=== PATIENT | female | born 2000 | race Two or more races ===

== ENCOUNTER 2025-03-19 16:06 | Emergency (ER) | payer BC ==
[2025-03-19 16:15] VITALS: RESP 16; TEMP 98
--- NOTE | 2025-03-19 16:43 | ED ---
General Adult HPI - General Chief complaint: Recheck/Abnormal Lab/Rx Stated complaint: Abn labs Time Seen by Provider: 03/19/25 16:16 Source: patient, RN notes reviewed Mode of arrival: ambulatory - History of Present Illness Initial comments: 24-year-old female presents to the emergency department for positive syphilis test. The patient had routine laboratory testing and STD testing performed by her primary care provider. She was called by her primary care provider and instructed to come to the emergency department for positive syphilis test. She does not have any symptoms currently. She denies any rashes or ulceration. Denies any vaginal discharge. Denies any fever, chills. Denies headache, confusion, rash. - Related Data Allergies Allergy/AdvReac Type Severity Reaction Status Date / Time No Known Allergies Allergy Verified 03/19/25 16:15 Review of Systems ROS Statement: Those systems with pertinent positive or pertinent negative responses have been documented in the HPI. ROS Other: All systems not noted in ROS Statement are negative. Past Medical History Past Medical History: No Reported History History of Any Multi-Drug Resistant Organisms: None Reported Past Surgical History: No Surgical Hx Reported Smoking Status: Never smoker Past Alcohol Use History: Occasional Past Drug Use History: None Reported General Exam Limitations: no limitations General appearance: alert, in no apparent distress Head exam: Present: atraumatic, normocephalic, normal inspection Eye exam: Present: normal appearance, PERRL, EOMI. Absent: scleral icterus, conjunctival injection, periorbital swelling ENT exam: Present: normal exam, mucous membranes moist Respiratory exam: Present: normal lung sounds bilaterally. Absent: respiratory distress, wheezes, rales, rhonchi, stridor Cardiovascular Exam: Present: regular rate, normal rhythm, normal heart sounds. Absent: systolic murmur, diastolic murmur, rubs, gallop, clicks GI/Abdominal exam: Present: soft. Absent: distended, tenderness, guarding, rebound, rigid Extremities exam: Present: normal inspection, full ROM, normal capillary refill. Absent: tenderness, pedal edema, joint swelling, calf tenderness Neurological exam: Present: alert, oriented X3 Psychiatric exam: Present: normal affect, normal mood Skin exam: Present: warm, dry, intact, normal color. Absent: rash Course Vital Signs 03/19/25 03/19/25 16:10 17:14 Temperature 98.0 F Pulse Rate 77 80 Respiratory 16 16 Rate Blood Pressure 134/85 143/85 O2 Sat by Pulse 98 99 Oximetry Medical Decision Making - Medical Decision Making Was pt. sent in by a medical professional or institution (SUSAN Brown, [employer], urgent care, hospital, or [facility]...) When possible be specific @ -PCP Did you speak to anyone other than the patient for history (EMS, parent, family, police, friend...)? What history was obtained from this source @ -No Did you review nursing and triage notes (agree or disagree)? Why? @ -I reviewed and agree with nursing and triage notes Were old charts reviewed (outside hosp., previous admission, EMS record, old EKG, old radiological studies, urgent care reports/EKG's, [facility] records)? Report findings @ -I reviewed testing from patient's primary care provider which revealed a reactive RPR and treponema Differential Diagnosis (chest pain, altered mental status, abdominal pain women, abdominal pain men, vaginal bleeding, weakness, fever, dyspnea, syncope, headache, dizziness, GI bleed, back pain, seizure, CVA, palpatations, mental health, musculoskeletal)? @ -Primary syphilis, latent syphilis, neurosyphilis, this list is not all inclusive EKG interpreted by me (3pts min.). @ -None X-rays interpreted by me (1pt min.). @ -None done CT interpreted by me (1pt min.). @ -None done U/S interpreted by me (1pt. min.). @ -None done What testing was considered but not performed or refused? (CT, X-rays, U/S, labs)? Why? @ -None What meds were considered but not given or refused? Why? @ -None Did you discuss the management of the patient with other professionals (professionals i.e. SUSAN Brown, [employer]ING [employer], lab, RT, psych nurse, social media project manager, sheet rock taper helper, teacher, electronic warfare officer, case preparer and liner)? Give summary @ -No Was smoking cessation discussed for >3mins.? @ -No Was critical care preformed (if so, how long)? @ -No Were there social determinants of health that impacted care today? How? (Homelessness, low income, unemployed, alcoholism, drug addiction, transportation, low edu. Level, literacy, decrease access to med. care, correction, rehab)? @ -No Was there de-escalation of care discussed even if they declined (Discuss DNR or withdrawal of care, Hospice)? DNR status @ -No What co-morbidities impacted this encounter? (DM, HTN, Smoking, COPD, CAD, Cancer, CVA, ARF, Chemo, Hep., AIDS, mental health diagnosis, sleep apnea, morbid obesity)? @ -None Was patient admitted / discharged? Hospital course, mention meds given and route, prescriptions, significant lab abnormalities, going to OR and other pertinent info. @ -Discharge. Patient sent by primary care provider for antibiotic shot for positive syphilis test. I reviewed the patient's outpatient laboratory test revealing reactive RPR. Patient is currently asymptomatic. She will be provided a shot of IM penicillin 2,400,000 units. Patient will be discharged home. Vies follow-up with her PCP. She is understanding agreeable with plan. Patient stable at time of discharge. Case discussed with Dr. Graham. Undiagnosed new problem with uncertain prognosis? @ -No Drug Therapy requiring intensive monitoring for toxicity (Heparin, Nitro, Insulin, Cardizem)? @ -No Were any procedures done? @ -No Diagnosis/symptom? @ -Syphilis Acute, or Chronic, or Acute on Chronic? @ -Acute Uncomplicated (without systemic symptoms) or Complicated (systemic symptoms)? @ -Uncomplicated Side effects of treatment? @ -No Exacerbation, Progression, or Severe Exacerbation? @ -No Poses a threat to life or bodily function? How? (Chest pain, [place], [place], pneumonia, PE, COPD, DKA, ARF, appy, cholecystitis, CVA, Diverticulitis, Homicidal, Suicidal, threat to staff... and all critical care pts) @ -No Disposition Clinical Impression: Syphilis Disposition: HOME SELF-CARE Condition: Stable Additional Instructions: Please follow up with your doctor. Return to the emergency department for new or worsening symptoms. Is patient prescribed a controlled substance at d/c from ED?: No Referrals: Kathy Kuo MD [Primary Care Provider] - 1-2 days
[2025-03-19] MEDS: PENICILLIN G BENZATHINE 1,200,000 UNIT/2 ML SYRINGE IM STA (17:04)
[2025-03-19 17:17] VITALS: BP 143/85; PULSE 80
== END 2025-03-19 17:16 | disposition home or self-care (01) ==
LOC: EC 16:06
DX: A53.9 Syphilis, unspecified (principal)
CPT/HCPCS: 99283; 96372; J0561